=== PATIENT | female | born 1990 | race Caucasian/White ===

== ENCOUNTER 2020-09-18 19:56 | Emergency (ER) | payer MEDICAID, SELFPAY ==
[~2020-09-18] VITALS: Ht 162.6 cm; Wt 72.6 kg
[~2020-09-18 19:56] MED LIST: LEVO750T45 PO; METR500T PO
[2020-09-18 20:05] VITALS: BP_SYST 120
[2020-09-18] MEDS: ACETAMINOPHEN 500 MG TABLET PO ONE (21:15)
[2020-09-18 21:24] VITALS: BP_SYST 120
== END 2020-09-18 21:25 | disposition home or self-care (01) ==
LOC: SED 19:56
DX: O99.511 Diseases of the respiratory system complicating pregnancy, first trimester (principal); Z3A.01 Less than 8 weeks gestation of pregnancy; Z20.828 Contact with and (suspected) exposure to other viral communicable diseases
CPT/HCPCS: 99283; C9803; U0003

== ENCOUNTER 2020-10-21 17:52 | Emergency (ER) | payer MEDICAID, SELFPAY ==
[~2020-10-21] VITALS: Ht 162.6 cm; Wt 70.8 kg
[2020-10-21 18:40] VITALS: BP_SYST 129
[2020-10-21 19:00] VITALS: BP_SYST 129
== END 2020-10-21 19:00 | disposition home or self-care (01) ==
LOC: SED 17:52
DX: S93.401A Sprain of unspecified ligament of right ankle, initial encounter (principal); Z79.899 Other long term (current) drug therapy; W18.39XA Other fall on same level, initial encounter; Y93.89 Activity, other specified; Y92.89 Other specified places as the place of occurrence of the external cause; Y99.8 Other external cause status
CPT/HCPCS: 99283

== ENCOUNTER 2021-10-25 22:58 | Emergency (ER) | payer MEDICAID, SELFPAY ==
[~2021-10-25] VITALS: Ht 162.6 cm; Wt 74.8 kg
[2021-10-25 22:58] VITALS: BP_SYST 146
--- NOTE | 2021-10-25 23:09 | NUR ---
FREDRICK Smith in tent examining patient.
[2021-10-25] MEDS ORDERED: KETOROLAC TROMETHAMINE 30 MG VIAL IVP ONE (23:30)
[2021-10-26 00:11] LABS: BASOPHILS % (AUTO) 0.4 % (0.0-2.0); EOSINOPHILS # (AUTO) 0.2 K/uL (0.0-0.4); EOSINOPHILS % (AUTO) 1.7 % (0.0-4.0); HEMATOCRIT 39.8 % (36-48); HEMOGLOBIN 13.5 g/dL (12.0-16.0); LYMPHOCYTES # (AUTO) 1.5 K/uL (1.0-5.5); LYMPHOCYTES % (AUTO) 16.6 % (20.5-51.5); MEAN CORPUSCULAR HEMOGLOBIN 30 pg (27-31); MEAN CORPUSCULAR HGB CONC 34 % (32-36); MEAN CORPUSCULAR VOLUME 89 fL (79.0-98.0); MONOCYTES # (AUTO) 0.3 K/uL (0.0-1.0); MONOCYTES % (AUTO) 3.5 % (1.7-9.3); NEUTROPHILS # (AUTO) 7.1 K/uL (1.8-7.7); NEUTROPHILS % (AUTO) 77.8 % (40.0-70.0); PLATELET COUNT (AUTO) 284 K/uL (130-430); RED BLOOD CELL COUNT(AUTO) 4.46 MIL/uL (4.2-6.2); RED CELL DISTRIBUTION WIDTH 13.3 % (9.0-15.0); WHITE BLOOD COUNT (AUTO) 9.1 K/uL (4.8-10.8)
[2021-10-26] MEDS ORDERED: KETOROLAC TROMETHAMINE 30 MG VIAL IM ONE (00:15)
[2021-10-26 00:17] LABS: CREATININE 0.69 mg/dL (0.55-1.30); POTASSIUM 3.8 mmol/L (3.5-5.1)
[2021-10-26 00:28] LABS: ALBUMIN 3.6 g/dL (3.4-4.8); TOTAL BILIRUBIN 0.2 mg/dL (0.0-1.0)
[2021-10-26 01:03] LABS: C-REACTIVE PROTEIN QUANT 0.2 mg/dL (0-0.5)
[2021-10-26] MEDS ORDERED: LORazepam 1 MG TABLET PO ONE (02:15)
[2021-10-26 02:30] VITALS: BP_SYST 115
--- NOTE | 2021-10-26 02:30 | NUR ---
Medicated w/ 1mg ativan per MD orders. Will cont to monitor and observe for any adverse reaction. Patient given written and verbal discharge instructions and verbalizes understanding. ER MD discussed with patient the results and treatment provided. Patient in stable condition. Rx of ativan given. Patient educated on pain management and to follow up with PMD. Pain Scale 0. Opportunity for questions provided and answered. Medication side effect fact sheet provided.
== END 2021-10-26 02:30 | disposition home or self-care (01) ==
LOC: SED 22:58
DX: U07.1 COVID-19 (principal); R07.89 Other chest pain; Z79.899 Other long term (current) drug therapy
CPT/HCPCS: 36415; 71045; 80053; 82550; 83605; 84484; 85025; 85379; 86140; 87040; 87426; 93005; 96372; 99285; J1885

== ENCOUNTER 2021-11-06 06:23 | Emergency (ER) | payer MEDICAID, SELFPAY ==
[~2021-11-06] VITALS: Ht 165.1 cm; Wt 74.8 kg
[2021-11-06 06:25] VITALS: BP_SYST 144
--- NOTE | 2021-11-06 06:35 | NUR ---
Placed in room 3 . Placed on fiber optic splicer, blood pressure machine and pulse oximeter. To gown for exam. Side rails up. Report given to Tyler MOSER.
--- NOTE | 2021-11-06 06:57 | NUR ---
ER at bedside examining patient.
--- NOTE | 2021-11-06 06:59 | NUR ---
Urine HCG done, results negative.
[2021-11-06] MEDS ORDERED: ALPRAZolam 0.25 MG TABLET PO ONE (07:00)
--- NOTE | 2021-11-06 07:00 | NUR ---
Dr. Harris bedside for pt eval
[2021-11-06 07:46] LABS: BASOPHILS % (AUTO) 0.4 % (0.0-2.0); EOSINOPHILS % (AUTO) 0.5 % (0.0-4.0); HEMOGLOBIN 14.3 g/dL (12.0-16.0); LYMPHOCYTES # (AUTO) 1.4 K/uL (1.0-5.5); LYMPHOCYTES % (AUTO) 15.7 % (20.5-51.5); MEAN CORPUSCULAR HEMOGLOBIN 30 pg (27-31); MEAN CORPUSCULAR HGB CONC 34 % (32-36); MEAN CORPUSCULAR VOLUME 89 fL (79.0-98.0); MONOCYTES # (AUTO) 0.4 K/uL (0.0-1.0); MONOCYTES % (AUTO) 4.7 % (1.7-9.3); NEUTROPHILS % (AUTO) 78.7 % (40.0-70.0); PLATELET COUNT (AUTO) 295 K/uL (130-430); RED BLOOD CELL COUNT(AUTO) 4.72 MIL/uL (4.2-6.2); RED CELL DISTRIBUTION WIDTH 13.2 % (9.0-15.0); WHITE BLOOD COUNT (AUTO) 8.9 K/uL (4.8-10.8)
[2021-11-06 08:04] LABS: CALCIUM 8.9 mg/dL (8.4-11.0); CREATININE 0.64 mg/dL (0.55-1.30); POTASSIUM 3.7 mmol/L (3.5-5.1)
[2021-11-06 08:13] LABS: ALBUMIN 3.8 g/dL (3.4-4.8)
[2021-11-06] MEDS ORDERED: ALPR0.25 PO (08:47)
[2021-11-06 08:57] VITALS: BP_SYST 110
--- NOTE | 2021-11-06 08:58 | NUR ---
Patient given written and verbal discharge instructions and verbalizes understanding. FREDRICK DURHAM MD discussed with patient the results and treatment provided. Patient in stable condition. ID arm band removed. Rx of XANAX given. Patient educated on pain management and to follow up with PMD. Pain Scale 0. Opportunity for questions provided and answered. Medication side effect fact sheet provided.
== END 2021-11-06 08:58 | disposition home or self-care (01) ==
LOC: SED 06:23
DX: F41.9 Anxiety disorder, unspecified (principal); Z79.899 Other long term (current) drug therapy
CPT/HCPCS: 36415; 71045; 80053; 81025; 84484; 85025; 85379; 93005; 99285

== ENCOUNTER 2022-03-17 07:50 | Emergency (ER) | payer MEDICAID ==
[~2022-03-17] VITALS: Ht 165.1 cm; Wt 72.6 kg
[~2022-03-17 07:50] MED LIST changes: +ALPR0.25 PO
--- NOTE | 2022-03-17 08:10 | NUR ---
ER at bedside examining patient.
[2022-03-17 08:15] VITALS: BP_SYST 100
--- NOTE | 2022-03-17 08:15 | NUR ---
Patient arrived to ED Room 2 from waiting room for c/o abdominal pain on right that started on Thursday on 03/14/22 that started getting progressively worse. Patient took tylenol yesterday at 8 pm, but does not remember the dosage (two pills). Patient unable to handle pain this morning while in shower and she drove by herself to [facility] ER. Patient states that she is 10 weeks , and this is her fourth and three living children so far. Dr. Caruso at bedside to MSE patient. Will continue to monitor.
[2022-03-17 08:37] LABS: BASOPHILS # (AUTO) 0.1 K/uL (0.0-0.2); BASOPHILS % (AUTO) 0.8 % (0.0-2.0); EOSINOPHILS # (AUTO) 0.1 K/uL (0.0-0.4); EOSINOPHILS % (AUTO) 1.1 % (0.0-4.0); HEMATOCRIT 41.8 % (36-48); LYMPHOCYTES # (AUTO) 2.3 K/uL (1.0-5.5); LYMPHOCYTES % (AUTO) 23.6 % (20.5-51.5); MEAN CORPUSCULAR HEMOGLOBIN 30 pg (27-31); MEAN CORPUSCULAR HGB CONC 34 % (32-36); MEAN CORPUSCULAR VOLUME 90 fL (79.0-98.0); MONOCYTES # (AUTO) 0.4 K/uL (0.0-1.0); MONOCYTES % (AUTO) 4.6 % (1.7-9.3); NEUTROPHILS # (AUTO) 6.8 K/uL (1.8-7.7); NEUTROPHILS % (AUTO) 69.9 % (40.0-70.0); PLATELET COUNT (AUTO) 270 K/uL (130-430); RED BLOOD CELL COUNT(AUTO) 4.63 MIL/uL (4.2-6.2); RED CELL DISTRIBUTION WIDTH 14.2 % (9.0-15.0); WHITE BLOOD COUNT (AUTO) 9.7 K/uL (4.8-10.8)
[2022-03-17] MEDS: ONDANSETRON 4 MG ODT TAB PO ONE ×2 (08:49→10:24)
--- NOTE | 2022-03-17 08:53 | NUR ---
Patient resting in bed at the moment.
[2022-03-17 08:54] LABS: CALCIUM 8.4 mg/dL (8.4-11.0); CREATININE 0.64 mg/dL (0.55-1.30)
--- NOTE | 2022-03-17 09:04 | NUR ---
Patient said she "didn't feel well" and that "she felt dizzy." Patient placed on 2L NC and encouraged patient to sit in bed. Dr. Caruso notified and he came to bedside to see patient. Patient was positioned supine. Imaging done at bedside.
--- NOTE | 2022-03-17 09:07 | NUR ---
Vital signs taken and are stable at the moment.
[2022-03-17 09:14] LABS: ALBUMIN 3.3 g/dL (3.4-4.8); TOTAL BILIRUBIN 0.5 mg/dL (0.0-1.0)
--- NOTE | 2022-03-17 09:38 | NUR ---
Patient U/S in progress still.
--- NOTE | 2022-03-17 10:16 | NUR ---
Dr. Caruso at bedside to talk to patient. U/S just finished.
[2022-03-17] MEDS ORDERED: HYDR-3917 PO (10:24)
[2022-03-17] MEDS ORDERED: FAMO20TA8 PO (10:24)
[2022-03-17] MEDS ORDERED: ONDA-8 TL (10:24)
--- NOTE | 2022-03-17 10:48 | NUR ---
Dr. bullock with no IV.
[2022-03-17 11:04] VITALS: BP_SYST 124
--- NOTE | 2022-03-17 11:35 | NUR ---
Patient given written and verbal discharge instructions and verbalizes understanding. ER MD discussed with patient the results and treatment provided. Patient in stable condition. ID arm band removed. IV catheter removed intact and dressing applied, no active bleeding. Rx of given. Patient educated on pain management and to follow up with PMD. Pain Scale . Opportunity for questions provided and answered. Medication side effect fact sheet provided. Patient ambulatory with steady gait.
== END 2022-03-17 11:35 | disposition home or self-care (01) ==
LOC: SED 07:50
DX: O20.0 Threatened abortion (principal); Z79.899 Other long term (current) drug therapy; Z3A.10 10 weeks gestation of pregnancy
CPT/HCPCS: 36415; 76700; 76801; 76817; 80053; 81002; 83690; 84702; 85025; 99284; Q0162